=== PATIENT | male | born 1995 | race Caucasian/White ===

== ENCOUNTER 2016-10-08 06:35 | Emergency (ER) | payer OTHER ==
[~2016-10-08] VITALS: Ht 170.2 cm; Wt 73.5 kg
[2016-10-08 08:06] VITALS: BP 137/48
== END 2016-10-08 08:23 | disposition home or self-care (01) ==
LOC: EMS 06:36
DX: J32.9 Chronic sinusitis, unspecified (principal); L08.9 Local infection of the skin and subcutaneous tissue, unspecified; F17.210 Nicotine dependence, cigarettes, uncomplicated; F19.90 Other psychoactive substance use, unspecified, uncomplicated
CPT/HCPCS: 99281; 99283

== ENCOUNTER 2019-03-05 18:15 | Emergency (ER) | payer OTHER ==
[~2019-03-05] VITALS: Ht 172.7 cm; Wt 90.9 kg
[2019-03-05 18:48] VITALS: BP 124/84
[2019-03-05] MEDS: NEOMYCIN/POLYMYXIN B/HYDROCORT 10 ML OTIC SOLUTION AD ONE (19:17)
== END 2019-03-05 19:34 | disposition home or self-care (01) ==
LOC: EMS 18:18
DX: H60.92 Unspecified otitis externa, left ear (principal); F17.210 Nicotine dependence, cigarettes, uncomplicated; F19.90 Other psychoactive substance use, unspecified, uncomplicated
CPT/HCPCS: 99406

== ENCOUNTER 2020-11-18 12:38 | Emergency (ER) | payer OTHER ==
[~2020-11-18] VITALS: Ht 175.3 cm; Wt 90.9 kg
[2020-11-18] MEDS ORDERED: TETANUS/DIPHTHERIA TOXOID [TDVAX] [ADULT] 0.5 ML VIAL IM. ONE (13:45)
[2020-11-18 13:57] VITALS: BP 129/79
== END 2020-11-18 14:38 | disposition home or self-care (01) ==
LOC: EMS 12:38
DX: L02.416 Cutaneous abscess of left lower limb (principal); F15.90 Other stimulant use, unspecified, uncomplicated; F17.210 Nicotine dependence, cigarettes, uncomplicated
CPT/HCPCS: 10060; 90471; 90714; 99283

== ENCOUNTER 2021-03-03 19:50 | Emergency (ER) | payer OTHER ==
[~2021-03-03] VITALS: Ht 172.7 cm; Wt 93.6 kg
[2021-03-03] MEDS ORDERED: DiphenhydrAMINE HCL 25 MG CAPSULE PO ONE (20:45)
[2021-03-03] MEDS ORDERED: LORazepam 2 MG TABLET PO ONE (20:45)
[2021-03-03 21:30] VITALS: BP 115/65
== END 2021-03-03 21:40 | disposition home or self-care (01) ==
LOC: EMS 19:54
DX: G25.71 Drug induced akathisia (principal); F41.9 Anxiety disorder, unspecified; F20.9 Schizophrenia, unspecified
CPT/HCPCS: 99283

== ENCOUNTER 2021-05-30 07:11 | Emergency (ER) | payer OTHER ==
[~2021-05-30] VITALS: Ht 170.2 cm; Wt 92.0 kg
[2021-05-30] MEDS ORDERED: LIDOCAINE 5% TRANSDERMAL PATCH TD ONE (07:30)
[2021-05-30] MEDS ORDERED: ACETAMINOPHEN 500 MG TABLET PO ONE (07:30)
[2021-05-30] MEDS ORDERED: DiphenhydrAMINE HCL 25 MG CAPSULE PO ONE (08:15)
[2021-05-30 08:30] VITALS: BP 122/74
== END 2021-05-30 08:55 | disposition home or self-care (01) ==
LOC: EMS 07:11
DX: M62.830 Muscle spasm of back (principal)
CPT/HCPCS: 99284; Z7502; Z7610

== ENCOUNTER 2021-06-05 17:06 | Emergency (ER) | payer OTHER ==
[~2021-06-05] VITALS: Ht 170.2 cm; Wt 92.7 kg
[2021-06-05] MEDS ORDERED: TRAZ-252 PO (17:10)
[2021-06-05] MEDS ORDERED: SERT-162 PO (17:10)
[2021-06-05] MEDS ORDERED: PALI3TAB14 PO (17:10)
[2021-06-05] MEDS ORDERED: LIDOCAINE 5% TRANSDERMAL PATCH TD ONE (18:00)
[2021-06-05] MEDS ORDERED: DIAZEPAM 5 MG TABLET PO ONE (18:00)
[2021-06-05] MEDS ORDERED: KETOROLAC TROMETHAMINE 30 MG/ML VIAL IM ONE (18:00)
[2021-06-05 20:01] VITALS: BP 128/77
== END 2021-06-05 20:02 | disposition home or self-care (01) ==
LOC: EMS 17:25
DX: M54.2 Cervicalgia (principal); F20.9 Schizophrenia, unspecified; Z79.899 Other long term (current) drug therapy
CPT/HCPCS: 96372; 99283; J1885

== ENCOUNTER 2021-06-21 10:22 | Emergency (ER) | payer OTHER ==
[~2021-06-21] VITALS: Ht 170.2 cm; Wt 90.0 kg
[~2021-06-21 10:22] MED LIST: PALI3TAB14 PO; SERT-162 PO; TRAZ-252 PO
[2021-06-21 11:15] LABS: COVID AG,FIA SOURCE NASOPHARYNGEAL
[2021-06-21] MEDS ORDERED: DiphenhydrAMINE HCL 50 MG CAPSULE PO ONE (12:30)
[2021-06-21] MEDS ORDERED: LORazepam 1 MG TABLET PO ONE (12:30)
[2021-06-21 12:41] LABS: BASOPHILS % (AUTO) 0.4 % (0.0-2.0); HEMATOCRIT 37.2 % (41-53); HEMOGLOBIN 12.8 g/dL (13.5-17.5); LYMPHOCYTES # (AUTO) 1.5 K/uL (1.0-4.8); MEAN CORPUSCULAR HGB CONC 34.5 G/dL (31.0-37.0); MEAN CORPUSCULAR VOLUME 90 fL (80-100); MONOCYTES # (AUTO) 0.4 K/uL (0.1-1.0); MONOCYTES % (AUTO) 6.8 % (2.0-9.0); NEUTROPHILS # (AUTO) 4.3 K/uL (1.8-7.7); NEUTROPHILS % (AUTO) 67.8 % (40.0-70.0); PLATELET COUNT (AUTO) 358 K/uL (150-450); RED BLOOD CELL COUNT(AUTO) 4.14 MIL/uL (4.50-5.90); RED CELL DISTRIBUTION WIDTH 13.6 % (11.5-14.5)
[2021-06-21 13:00] LABS: ANION GAP 6 mmol/L (8-16); CALCIUM, TOTAL 9.5 mg/dL (8.8-10.5); CARBON DIOXIDE 26 mmol/L (22-29); CHLORIDE 100 mmol/L (98-107); CREATININE 0.76 mg/dL (0.60-1.30); GLOMERULAR FILTR. RATE CALC > 60 mL/min (>60); GLUCOSE,RANDOM 114 mg/dL (70-110); SODIUM SERUM 132 mmol/L (136-145); UREA NITROGEN, BLOOD 10 mg/dL (7-18)
[2021-06-21 13:10] LABS: AMPHET/METH SCREEN,URINE NEGATIVE (NEGATIVE); BARBITURATE SCREEN, URINE NEGATIVE (NEGATIVE); BENZODIAZEPINES SCREEN,URINE POSITIVE (NEGATIVE); CANNABINOID SCREEN,URINE NEGATIVE (NEGATIVE); COCAINE SCREEN,URINE NEGATIVE (NEGATIVE); METHADONE SCREEN, URINE NEGATIVE (NEGATIVE); OPIATE SCREEN,URINE NEGATIVE (NEGATIVE); PHENCYCLIDINE SCREEN,URINE NEGATIVE (NEGATIVE)
[2021-06-21 13:23] LABS: ALANINE AMINOTRANSFERASE 380 U/L (12-78); ALBUMIN 3.9 g/dL (3.4-5.0); ALKALINE PHOSPHATASE 199 U/L (46-116); ASPARTATE AMINOTRANSFERASE 24 U/L (15-37); BILIRUBIN,TOTAL 0.3 mg/dL (0.1-1.0); THYROID STIMULATING HORMONE 1.45 uIU/mL (0.36-3.74); TOTAL PROTEIN, SERUM 8.3 g/dL (6.4-8.2)
[2021-06-21 14:19] VITALS: BP 103/66
== END 2021-06-21 14:34 | disposition home or self-care (01) ==
LOC: EMS 10:22
DX: F41.9 Anxiety disorder, unspecified (principal); R06.02 Shortness of breath; R20.8 Other disturbances of skin sensation; F20.9 Schizophrenia, unspecified; Z20.822 Contact with and (suspected) exposure to COVID-19
CPT/HCPCS: 36415; 71045; 80053; 80307; 84439; 84443; 85025; 87426; 99284; G0480

== ENCOUNTER 2021-07-26 06:37 | Emergency (ER) | payer OTHER ==
[~2021-07-26] VITALS: Ht 170.2 cm; Wt 90.0 kg
[2021-07-26 06:39] VITALS: BP 110/71
[2021-07-26] MEDS ORDERED: LORA-999 PO (06:54)
[2021-07-26] MEDS ORDERED: TRIH2TAB3 PO (06:54)
[2021-07-26] MEDS ORDERED: PROP10TA73 PO (06:54)
== END 2021-07-26 09:03 | disposition home or self-care (01) ==
LOC: EMS 06:40
DX: F41.9 Anxiety disorder, unspecified (principal); F20.9 Schizophrenia, unspecified; Z79.899 Other long term (current) drug therapy
CPT/HCPCS: 99282; Z7502

== ENCOUNTER 2021-08-04 21:20 | Inpatient (IN) | payer OTHER ==
[~2021-08-04] VITALS: Ht 165.1 cm; Wt 70.5 kg
[~2021-08-04 21:20] MED LIST changes: +LORA-999 PO; +PROP10TA73 PO; +TRIH2TAB3 PO
[2021-08-04] MEDS ORDERED: MIRT-89 PO (21:34)
[2021-08-04] MEDS ORDERED: PROP10TA10 PO (21:34)
[2021-08-04] MEDS ORDERED: AMOX-429 PO (21:34)
[2021-08-04 22:16] LABS: BASOPHILS % (AUTO) 0.3 % (0.0-2.0); EOSINOPHILS % (AUTO) 0.4 % (1.0-6.0); HEMATOCRIT 40.3 % (41-53); HEMOGLOBIN 13.9 g/dL (13.5-17.5); LYMPHOCYTES # (AUTO) 1.3 K/uL (1.0-4.8); LYMPHOCYTES % (AUTO) 12.2 % (22.0-44.0); MEAN CORPUSCULAR HEMOGLOBIN 30.8 pg (26.0-34.0); MEAN CORPUSCULAR HGB CONC 34.5 G/dL (31.0-37.0); MEAN CORPUSCULAR VOLUME 89 fL (80-100); MONOCYTES # (AUTO) 0.9 K/uL (0.1-1.0); MONOCYTES % (AUTO) 8.3 % (2.0-9.0); NEUTROPHILS # (AUTO) 8.6 K/uL (1.8-7.7); NEUTROPHILS % (AUTO) 78.8 % (40.0-70.0); PLATELET COUNT (AUTO) 320 K/uL (150-450); RED BLOOD CELL COUNT(AUTO) 4.52 MIL/uL (4.50-5.90); RED CELL DISTRIBUTION WIDTH 13.2 % (11.5-14.5)
[2021-08-04 22:26] LABS: APPEARANCE,URINE TURBID (CLEAR); BILIRUBIN,URINE NEGATIVE (NEGATIVE); GLUCOSE, URINE (UA) NEGATIVE (NEGATIVE); KETONES,URINE NEGATIVE (NEGATIVE); LEUKOCYTE ESTERASE ,URINE NEGATIVE (NEGATIVE); NITRATE,URINE NEGATIVE (NEGATIVE); OCCULT BLOOD,URINE NEGATIVE (NEGATIVE); PROTEIN,URINE TRACE (NEGATIVE)
[2021-08-04 22:39] LABS: ANION GAP 7 mmol/L (8-16); CALCIUM, TOTAL 9.4 mg/dL (8.8-10.5); CARBON DIOXIDE 29 mmol/L (22-29); CHLORIDE 99 mmol/L (98-107); CREATININE 0.75 mg/dL (0.60-1.30); GLOMERULAR FILTR. RATE CALC > 60 mL/min (>60); GLUCOSE,RANDOM 149 mg/dL (70-110); POTASSIUM 3.9 mmol/L (3.5-5.1); SODIUM SERUM 135 mmol/L (136-145); UREA NITROGEN, BLOOD 11 mg/dL (7-18)
[2021-08-04 22:48] LABS: ALANINE AMINOTRANSFERASE 465 U/L (12-78); ALBUMIN 4.1 g/dL (3.4-5.0); ALKALINE PHOSPHATASE 151 U/L (46-116); ASPARTATE AMINOTRANSFERASE 520 U/L (15-37); BILIRUBIN,TOTAL 1.4 mg/dL (0.1-1.0); HCG,QUANTITATIVE < 1 mIU/mL (0-6); LIPASE 115 U/L (73-393); TOTAL PROTEIN, SERUM 8.7 g/dL (6.4-8.2)
[2021-08-04 22:50] LABS: BACTERIA,URINE Few /HPF (None Seen); RBC,URINE 0-2 /HPF (0-2)
[2021-08-04] MEDS ORDERED: SODIUM CHLORIDE 0.9% 1,000 ML IV ONE (23:30)
[2021-08-04] MEDS ORDERED: ONDANSETRON HCL 4 MG/2 ML VIAL IVP ONE (23:30)
[2021-08-05] MEDS ORDERED: KETOROLAC TROMETHAMINE 30 MG/ML VIAL IVP ONE (00:15)
[2021-08-05 00:32] LABS: AMPHET/METH SCREEN,URINE NEGATIVE (NEGATIVE); BARBITURATE SCREEN, URINE NEGATIVE (NEGATIVE); BENZODIAZEPINES SCREEN,URINE POSITIVE (NEGATIVE); CANNABINOID SCREEN,URINE NEGATIVE (NEGATIVE); COCAINE SCREEN,URINE NEGATIVE (NEGATIVE); METHADONE SCREEN, URINE NEGATIVE (NEGATIVE); OPIATE SCREEN,URINE NEGATIVE (NEGATIVE)
[2021-08-05] MEDS ORDERED: IOHEXOL 350 MG/ML 100 ML VIAL ONE (00:33)
[2021-08-05] MEDS ORDERED: SODIUM CHLORIDE 0.9% 100 ML ONE (00:33)
[2021-08-05 00:38] LABS: PHENCYCLIDINE SCREEN,URINE NEGATIVE (NEGATIVE)
[2021-08-05] MEDS ORDERED: FOLI0.8C PO (01:03)
[2021-08-05] MEDS ORDERED: PYRI-14 PO (01:03)
[2021-08-05] MEDS ORDERED: THIA100T80 PO (01:03)
[2021-08-05] MEDS ORDERED: MORPHINE SULFATE 2 MG/ML SYRINGE IVP ONE (02:30)
[2021-08-05] MEDS ORDERED: PB/HYOSCY/ATR/SCOP/LIDO/MAALOX 55 ML BOTTLE PO ONE (02:45)
[2021-08-05] MEDS ORDERED: FAMOTIDINE 10 MG/ML 2 ML VIAL IVP ONE (02:45)
[2021-08-05 03:01] LABS: SALICYLATE < 2.8 mg/dL (2.8-20.0)
[2021-08-05 03:02] LABS: INR 1.1 (0.9-1.1); PROTHROMBIN TIME 11.6 SEC (9.4-11.6)
[2021-08-05 03:08] LABS: ACETAMINOPHEN < 2 mcg/mL (10-30)
[2021-08-05] MEDS ORDERED: ONDANSETRON HCL 4 MG/2 ML VIAL IVP PRN (04:00)
[2021-08-05] MEDS ORDERED: MORPHINE SULFATE 4 MG/ML SYRINGE IVP PRN (04:00)
[2021-08-05] MEDS: RINGERS SOLUTION,LACTATED 1,000 ML IV SCH ×2 (04:36→14:00)
[2021-08-05 07:04] LABS: COVID AG,FIA SOURCE NASAL SWAB
[2021-08-05] MEDS: HEPARIN SODIUM,PORCINE 5,000 UNITS/ML VIAL SQ SCH ×3 (08:00→23:25)
[2021-08-05 09:25] VITALS: BP 90/53
[2021-08-05 10:31] VITALS: BP 115/73
[2021-08-05 10:34] VITALS: BP 115/73
[2021-08-05 11:04] LABS: ALANINE AMINOTRANSFERASE 759 U/L (12-78); ALBUMIN 3.4 g/dL (3.4-5.0); ALKALINE PHOSPHATASE 189 U/L (46-116); ASPARTATE AMINOTRANSFERASE 557 U/L (15-37); BILIRUBIN,TOTAL 2.1 mg/dL (0.1-1.0); TOTAL PROTEIN, SERUM 7.5 g/dL (6.4-8.2)
[2021-08-05 11:07] LABS: ACETAMINOPHEN < 2 mcg/mL (10-30)
[2021-08-05 15:48] VITALS: BP 96/58
[2021-08-05 16:36] LABS: HEMATOCRIT 36.9 % (41-53); HEMOGLOBIN 12.7 g/dL (13.5-17.5); LYMPHOCYTES % (AUTO) 33.5 % (22.0-44.0); MEAN CORPUSCULAR HGB CONC 34.5 G/dL (31.0-37.0); MEAN CORPUSCULAR VOLUME 90 fL (80-100); MONOCYTES % (AUTO) 12.1 % (2.0-9.0); NEUTROPHILS % (AUTO) 50.6 % (40.0-70.0); PLATELET COUNT (AUTO) 290 K/uL (150-450); RED BLOOD CELL COUNT(AUTO) 4.11 MIL/uL (4.50-5.90); RED CELL DISTRIBUTION WIDTH 13.4 % (11.5-14.5)
[2021-08-05 16:37] LABS: BASOPHILS % (AUTO) 0.7 % (0.0-2.0); EOSINOPHILS % (AUTO) 3.1 % (1.0-6.0); LYMPHOCYTES # (AUTO) 1.3 K/uL (1.0-4.8); MONOCYTES # (AUTO) 0.5 K/uL (0.1-1.0)
[2021-08-05 16:55] LABS: PLATELET MORPHOLOGY COMMENT LARGE PLTS PRESENT
[2021-08-05 20:33] VITALS: BP 94/52
[2021-08-06] VITALS (7 sets, daily range): BP systolic 95–113; BP diastolic 58–78
[2021-08-06] MEDS: RINGERS SOLUTION,LACTATED 1,000 ML IV SCH ×3 (00:12→20:26)
[2021-08-06] MEDS: HEPARIN SODIUM,PORCINE 5,000 UNITS/ML VIAL SQ SCH ×2 (07:27→16:00)
[2021-08-06 12:01] LABS: BASOPHILS % (AUTO) 0.6 % (0.0-2.0); EOSINOPHILS % (AUTO) 2.7 % (1.0-6.0); HEMATOCRIT 40.1 % (41-53); LYMPHOCYTES # (AUTO) 1.3 K/uL (1.0-4.8); LYMPHOCYTES % (AUTO) 26.4 % (22.0-44.0); MEAN CORPUSCULAR HEMOGLOBIN 31.3 pg (26.0-34.0); MEAN CORPUSCULAR HGB CONC 34.8 G/dL (31.0-37.0); MEAN CORPUSCULAR VOLUME 90 fL (80-100); MONOCYTES # (AUTO) 0.4 K/uL (0.1-1.0); MONOCYTES % (AUTO) 7.2 % (2.0-9.0); NEUTROPHILS # (AUTO) 3.1 K/uL (1.8-7.7); NEUTROPHILS % (AUTO) 63.1 % (40.0-70.0); PLATELET COUNT (AUTO) 319 K/uL (150-450); RED BLOOD CELL COUNT(AUTO) 4.47 MIL/uL (4.50-5.90); RED CELL DISTRIBUTION WIDTH 13.2 % (11.5-14.5)
[2021-08-06 12:11] LABS: ANION GAP 9 mmol/L (8-16); CALCIUM, TOTAL 9.3 mg/dL (8.8-10.5); CARBON DIOXIDE 28 mmol/L (22-29); CHLORIDE 101 mmol/L (98-107); CREATININE 0.73 mg/dL (0.60-1.30); GLOMERULAR FILTR. RATE CALC > 60 mL/min (>60); GLUCOSE,RANDOM 103 mg/dL (70-110); SODIUM SERUM 138 mmol/L (136-145); UREA NITROGEN, BLOOD 4 mg/dL (7-18)
[2021-08-06 12:18] LABS: ALANINE AMINOTRANSFERASE 697 U/L (12-78); ALBUMIN 3.9 g/dL (3.4-5.0); ALKALINE PHOSPHATASE 223 U/L (46-116); ASPARTATE AMINOTRANSFERASE 191 U/L (15-37); BILIRUBIN,TOTAL 1.4 mg/dL (0.1-1.0); TOTAL PROTEIN, SERUM 8.4 g/dL (6.4-8.2)
[2021-08-06] MEDS ORDERED: FentaNYL CITRATE PF 100 MCG/2 ML VIAL IVP PRN (12:30)
[2021-08-06] MEDS ORDERED: HYDROmorphone 2 MG/ML VIAL IVP PRN (12:30)
[2021-08-06] MEDS ORDERED: IOHEXOL 240 MG/ML 20 ML VIAL ONE (14:08)
[2021-08-06] MEDS ORDERED: BUPIVACAINE/EPI/PF 0.5% 30 ML VIAL ONE (14:08)
[2021-08-06] MEDS ORDERED: SODIUM CHLORIDE 0.9% 1,000 ML ONE (14:09)
[2021-08-06] MEDS ORDERED: RINGERS SOLUTION,LACTATED 1,000 ML IV ONE (14:09)
[2021-08-06] MEDS ORDERED: SODIUM CL IRRIG SOLN BAG 3,000 ML IRRIG ONE (14:09)
[2021-08-06] MEDS ORDERED: BUPIVACAINE 0.25%/EPI 1:200,000/PF 10 ML VIAL ONE ×2 (14:12)
[2021-08-06] MEDS ORDERED: METOCLOPRAMIDE HCL 5 MG/ML 2 ML VIAL IVP PRN (15:30)
[2021-08-06] MEDS: HYDROCODONE/ACETAMINOPHEN 5-325 MG TABLET PO PRN (17:28)
[2021-08-06] MEDS: OXYGEN THERAPY IH SCH (20:26)
[2021-08-07] MEDS: HEPARIN SODIUM,PORCINE 5,000 UNITS/ML VIAL SQ SCH ×3 (00:23→17:16)
[2021-08-07] MEDS: HYDROCODONE/ACETAMINOPHEN 5-325 MG TABLET PO PRN ×3 (00:23→20:06)
[2021-08-07 03:43] VITALS: BP 113/74
[2021-08-07] MEDS ORDERED: FentaNYL CITRATE PF 100 MCG/2 ML VIAL IVP ONE (06:47)
[2021-08-07] MEDS ORDERED: ROCURONIUM BROMIDE 10 MG/ML 5 ML VIAL IVP ONE (06:47)
[2021-08-07] MEDS ORDERED: KETOROLAC TROMETHAMINE 60 MG/2 ML VIAL IM ONE (06:47)
[2021-08-07] MEDS ORDERED: SUCCINYLCHOLINE CHLORIDE 20 MG/ML 10 ML VIAL IVP ONE (06:47)
[2021-08-07] MEDS ORDERED: MIDAZOLAM HCL 2 MG/2 ML VIAL IVP ONE (06:47)
[2021-08-07] MEDS ORDERED: HYDROmorphone 2 MG/ML VIAL IVP ONE (06:47)
[2021-08-07] MEDS ORDERED: ONDANSETRON HCL 4 MG/2 ML VIAL IVP ONE (06:47)
[2021-08-07] MEDS ORDERED: LIDOCAINE/PF 2% 5 ML VIAL IM ONE (06:47)
[2021-08-07] MEDS: RINGERS SOLUTION,LACTATED 1,000 ML IV SCH ×2 (06:50→17:16)
[2021-08-07] MEDS: OXYGEN THERAPY IH SCH (08:14)
[2021-08-07 08:19] VITALS: BP 120/70
[2021-08-07 10:52] LABS: BASOPHILS % (AUTO) 0.2 % (0.0-2.0); EOSINOPHILS % (AUTO) 0.3 % (1.0-6.0); HEMOGLOBIN 13.8 g/dL (13.5-17.5); LYMPHOCYTES # (AUTO) 1.4 K/uL (1.0-4.8); LYMPHOCYTES % (AUTO) 16.5 % (22.0-44.0); MEAN CORPUSCULAR HEMOGLOBIN 30.3 pg (26.0-34.0); MEAN CORPUSCULAR HGB CONC 33.8 G/dL (31.0-37.0); MEAN CORPUSCULAR VOLUME 90 fL (80-100); MONOCYTES # (AUTO) 0.6 K/uL (0.1-1.0); MONOCYTES % (AUTO) 7.2 % (2.0-9.0); NEUTROPHILS # (AUTO) 6.6 K/uL (1.8-7.7); NEUTROPHILS % (AUTO) 75.8 % (40.0-70.0); PLATELET COUNT (AUTO) 333 K/uL (150-450); RED BLOOD CELL COUNT(AUTO) 4.56 MIL/uL (4.50-5.90); RED CELL DISTRIBUTION WIDTH 13.6 % (11.5-14.5)
[2021-08-07 11:02] LABS: ALANINE AMINOTRANSFERASE 485 U/L (12-78); ALBUMIN 3.9 g/dL (3.4-5.0); ALKALINE PHOSPHATASE 212 U/L (46-116); ANION GAP 7 mmol/L (8-16); ASPARTATE AMINOTRANSFERASE 81 U/L (15-37); CALCIUM, TOTAL 9.4 mg/dL (8.8-10.5); CARBON DIOXIDE 30 mmol/L (22-29); CHLORIDE 101 mmol/L (98-107); CREATININE 0.68 mg/dL (0.60-1.30); GLOMERULAR FILTR. RATE CALC > 60 mL/min (>60); GLUCOSE,RANDOM 118 mg/dL (70-110); POTASSIUM 3.9 mmol/L (3.5-5.1); SODIUM SERUM 138 mmol/L (136-145); TOTAL PROTEIN, SERUM 8.4 g/dL (6.4-8.2); UREA NITROGEN, BLOOD 2 mg/dL (7-18)
[2021-08-07] MEDS ORDERED: THIAMINE 100 MG TABLET PO ONE (11:30)
[2021-08-07] MEDS ORDERED: PYRIDOXINE HCL 50 MG TABLET PO ONE (11:30)
[2021-08-07] MEDS ORDERED: MULTIVITAMINS, THERAPEUTIC TABLET PO ONE (11:30)
[2021-08-07] MEDS ORDERED: PROPRANOLOL HCL 10 MG TABLET PO ONE (11:30)
[2021-08-07] MEDS ORDERED: TRIHEXYPHENIDYL HCL 2 MG TABLET PO ONE (12:00)
[2021-08-07] MEDS: PROPRANOLOL HCL 20 MG TABLET PO SCH ×3 (13:01→20:06)
[2021-08-07 15:55] VITALS: BP 126/77
[2021-08-07 20:05] VITALS: BP 103/60
[2021-08-07] MEDS ORDERED: MIRTAZAPINE 15 MG TABLET PO SCH (21:00)
[2021-08-08] MEDS ORDERED: PYRIDOXINE HCL 50 MG TABLET PO SCH (09:00)
[2021-08-08] MEDS ORDERED: THIAMINE 100 MG TABLET PO SCH (09:00)
[2021-08-08] MEDS ORDERED: TRIHEXYPHENIDYL HCL 2 MG TABLET PO SCH (09:00)
[2021-08-08] MEDS ORDERED: MULTIVITAMINS, THERAPEUTIC TABLET PO SCH (09:00)
== END 2021-08-07 21:20 | disposition home or self-care (01) | DRG 263 ==
LOC: EMS 21:21 → 6N 08-05 05:00
PROVIDERS: ADMIT Internal Medicine; ATTEND Internal Medicine
PROC: BF121ZZ Fluoroscopy of Gallbladder using Low Osmolar Contrast (ICD-10-PCS; 2021-08-06)
PROC: 0FT44ZZ Resection of Gallbladder, Percutaneous Endoscopic Approach (ICD-10-PCS; principal; 2021-08-06 14:30)
DX: K80.20 Calculus of gallbladder without cholecystitis without obstruction (principal); D64.9 Anemia, unspecified; D72.829 Elevated white blood cell count, unspecified; F20.9 Schizophrenia, unspecified; F41.9 Anxiety disorder, unspecified; Z20.822 Contact with and (suspected) exposure to COVID-19; R79.89 Other specified abnormal findings of blood chemistry
CPT/HCPCS: 74177; 74183; 76700; 80053; 80076; 81001; 82247; 82248; 83690; 84484; 84702; 85025; 85610; 85730; 88305; 93005; 99285; G0480; G0481; J0330; J0690; J1170; J1644; J1885; J2250; J2270; J2405; J3010; J3490; J7030; J7050; J7120; Q9966; Q9967